=== PATIENT | female | born 1995 | race Caucasian/White ===

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

== ENCOUNTER → 2017-11-13 | Day surgery (SDC) | payer OTHER ==
--- NOTE | 2017-11-11 14:09 | MH ---
cc: Hugo Betancourt MD DATE OF ADMISSION: 11/13/2017 DATE OF : 1995 INDICATIONS: A 21-year-old female with chronic, recurrent tonsillitis. The patient has had multiple sore throats. He has been on antibiotic therapy and does not respond to medical therapy plans. The plan is for tonsillectomy. PAST MEDICAL HISTORY: ALLERGIES: NO KNOWN DRUG ALLERGIES. PHYSICAL EXAMINATION: GENERAL: Well-developed, well-nourished female, in no apparent distress. HEENT: Normocephalic and atraumatic. Extraocular motions intact. External ear canals clear. Lips, oral mucosa and oropharynx show no lesions. Tonsils 3+ with erythema. Nasal exam confirms no lesion. NECK: Shows no masses. CHEST: Clear to auscultation. HEART: Regular rate. ABDOMEN: Soft. EXTREMITIES: No lesions. NEUROLOGIC: Exam nonfocal. ASSESSMENT: A 21-year-old female with chronic, recurrent tonsillitis. PLAN: To undergo tonsillectomy. Risks and benefits were discussed with the patient and her mother. Risks include, but are not limited to those of anesthesia, bleeding, unfavorable scarring, velopharyngeal insufficiency, dehydration, depression, abscess, voice change, bleeding. The patient and mother state she understands and accepts the risks of the procedure. Hugo Betancourt MD JPM/SB , 01:49 PM , 02:08 PM
[~2017-11-13] VITALS: Ht 167.6 cm; Wt 118.9 kg
[~2017-11-13] MED LIST: ACETAMINOPHEN 1000 MG/100 ML 100 ML IV ONE; ACETAMINOPHEN 325MG/HYDROcodone 7.5MG/15ML UDC PO PRN; CHLORHEXIDINE GLUCONATE 2 % 1 PACK (2 CLOTHS) TOPICAL PRN; DEXAMETHASONE SOD PHOS 4 MG/ML VIAL IV ONE; DO NOT ADM ANY ANTICOAGULANT DRUGS PRN; GLYCOPYRROLATE 1 MG/5 ML SYRINGE IV PUSH ONE; LACTATED RINGER'S 1000 ML IV PRN; LIDOCAINE HCL 1% PF 5 ML SYRINGE OTHER ONE; METOPROLOL TARTRATE 25 MG TAB PO PRN; MONOTAB PO; MORPHINE SULFATE 4 MG/ML INJ IV PRN; NEOSTIGMINE 5 MG/5 ML SYRINGE IV PUSH ONE; ONDANSETRON HCL 4 MG/2 ML VIAL IV ONE; ONDANSETRON HCL 4 MG/2 ML VIAL IV PUSH PRN; POVIDONE IODINE 5% (ANTISEPSIS KIT) 4 APPLICATIONS EACH NARE PRN; PROPOFOL 200 MG/20 ML AMP IV ONE; ROCURONIUM INJ 50 MG/5 ML SYRINGE IV PUSH ONE; SODIUM CHLORID 0.9% 500 ML IV PRN; SUCCINYLCHOLINE CHLORIDE 100 MG/5 ML SYRINGE IV PUSH ONE; SUGAMMADEX SODIUM 200 MG/2 ML VIAL IV PUSH ONE; VALA500T PO; ceFAZolin 1,000 MG/NS 100 ML IV SCH; ceFAZolin INJ 1,000 MG VIAL IV ONE; fentaNYL CITRATE 250 MCG/5 ML AMP ONE
--- NOTE | 2017-11-13 08:30 | MP ---
cc: Hugo Betancourt MD DATE OF OPERATION: 11/13/2017 INDICATION FOR PROCEDURE: This is a 22-year-old female with chronic recurrent tonsillitis, tonsil hypertrophy, has not responded to medical therapy. Plan is for tonsillectomy. PREOPERATIVE DIAGNOSIS: Chronic recurrent tonsillitis. POSTOPERATIVE DIAGNOSIS: Chronic recurrent tonsillitis. PROCEDURE PERFORMED: Tonsillectomy. PROCEDURE SUMMARY: The patient was brought to the operating room and placed in supine position, successfully placed under general anesthesia, prepped and draped in the usual fashion for this procedure. Oral cavity exposed with a retractor. No submucous cleft. The right tonsil was removed with the Coblation technique from superior to inferior. Left tonsil removed in a similar fashion. Both tonsil beds inspected for hemostasis, obtained by suction cautery. The patient was suctioned, retractor was removed, was awakened and extubated and taken to the recovery in stable condition. Hugo Betancourt MD JPMickie/KD , 08:18 AM , 08:29 AM
[2017-11-13 09:20] LABS: BASOPHIL % 0.3 % (0.0-2.0); EOSINOPHIL # 0.1 TH/MM3 (0-0.4); EOSINOPHIL % 1.3 % (0.0-4.0); HEMATOCRIT 37.8 % (35.0-46.0); HEMOGLOBIN 13.2 GM/DL (11.6-15.3); LYMPH % 38.4 % (9.0-44.0); LYMPHOCYTE # 2.4 TH/MM3 (1.0-4.8); MEAN CELL VOLUME 81.2 FL (80.0-100.0); MEAN CORPUSCULAR HEMOGLOBIN 28.4 PG (27.0-34.0); MEAN CORPUSCULAR HGB CONC 34.9 % (32.0-36.0); MEAN PLATELET VOLUME 7.4 FL (7.0-11.0); MONO % 11.4 % (0.0-8.0); MONOCYTE # 0.7 TH/MM3 (0-0.9); NEUT % 48.6 % (16.0-70.0); PLATELET COUNT 240 TH/MM3 (150-450); RED BLOOD COUNT 4.66 MIL/MM3 (4.00-5.30); RED CELL DISTRIBUTION WIDTH 13.3 % (11.6-17.2); WHITE BLOOD COUNT 6.1 TH/MM3 (4.0-11.0)
[2017-11-13 11:23] VITALS: TEMP 97.9
[2017-11-13 11:50] VITALS: BP 118/72; PULSE 82; RESP 16; O2SAT 98
== END | disposition home or self-care (01) ==
LOC: HSDC 07:59
PROVIDERS: ATTEND Specialist
DX: J35.01 Chronic tonsillitis (principal); Z01.818 Encounter for other preprocedural examination
CPT/HCPCS: 00170; 42826; 84703; 85025; 88304; J0131; J0330; J0690; J1100; J2405; J2710; J3010

== ENCOUNTER 2017-11-28 06:20 | Observation (INO) ==
--- NOTE | 2017-11-28 07:32 | ED ---
HPI General Chief complaint: Respiratory Symptoms Stated complaint: Vomiting blood x 20 min Time Seen by Provider: 11/28/17 07:01 History of Present Illness HPI narrative: 22-year-old female here for evaluation of spitting up blood. Patient had tonsillectomy done approximately 2 weeks ago and since then did not have any problems but today she woke up noticing that there is blood in her saliva. She denies any trauma to her mouth and states that she has been eating soft diet mainly, she was recently having fever on and off for the last 3 days and had a chest x-ray done yesterday and was started on antibiotics. Patient did not check her temperature at this morning but when she came here in the ER she had a temperature of 103, she states she has mild cough but no sputum, no headache or other symptoms. Related Data Home Medications Medication Instructions Recorded Confirmed Control 11/27/17 azithromycin [Zithromax Z-Evens] 250 mg PO DAILY 11/27/17 11/27/17 Previous Rx's Medication Instructions Recorded benzonatate [Tessalon Perles] 100 mg PO TID PRN #7 cap 11/27/17 levofloxacin [Levaquin] 750 mg PO DAILY 7 Days #7 tab 11/27/17 ondansetron [Zofran ODT] 4 mg PO Q6H PRN #5 tab 11/27/17 Allergies Allergy/AdvReac Type Severity Reaction Status Date / Time No Known Allergies Allergy Unknown Uncoded 11/13/17 08:45 Review of Systems Except as stated in HPI: all other systems reviewed are negative [facility] Medical History Medical History Herpes (Acute) Surgical History Surgical History History of tonsillectomy (Acute) Social History Social History Substance History: No History of Abuse Second Hand Smoke Exposure: No Smoking Status: Never smoker How Often Do You Have a Drink Containing Alcohol: Monthly or less Recent Travel in [facility] within the Last 8 Weeks: No Recent Out of Country Travel within the Last 8 Weeks: No Immunization History Tetanus Immunization: Unsure Hx Influenza Vaccine This Season: No Exam Narrative Exam Narrative: GENERAL: Alert oriented x3 no acute distress SKIN: Focused skin assessment warm/dry. HEAD: Atraumatic. Normocephalic. EYES: Pupils equal and round. No scleral icterus. No injection or drainage. ENT: Trace bleeding from the tonsillar bed right more than left, spontaneous hemostasis, no signs of infection, no nasal bleeding or discharge. Mucous membranes pink and moist. NECK: Trachea midline. No JVD. CARDIOVASCULAR: Regular rate and rhythm. No murmur appreciated. RESPIRATORY: No accessory muscle use. Clear to auscultation. Breath sounds equal bilaterally. GASTROINTESTINAL: Abdomen soft, non-tender, nondistended. Hepatic and splenic margins not palpable. MUSCULOSKELETAL: No obvious deformities. No clubbing. No cyanosis. No edema. NEUROLOGICAL: Awake and alert. No obvious cranial nerve deficits. Motor grossly within normal limits. Normal speech. PSYCHIATRIC: Appropriate mood and affect; insight and judgment normal. Course Initial Documented Vital Signs Temperature 102.2 F H 11/28/17 06:27 Pulse Rate 128 H 11/28/17 06:27 Respiratory Rate 18 11/28/17 06:27 Blood Pressure 148/70 H 11/28/17 06:27 Pulse Oximetry 95 11/28/17 06:27 Last Documented Vital Signs Temperature 103.0 F H 11/28/17 08:15 Pulse Rate 128 H 11/28/17 06:27 Respiratory Rate 18 11/28/17 06:27 Blood Pressure 148/70 H 11/28/17 06:27 Pulse Oximetry 95 11/28/17 06:27 Medical Decision Making MDM Narrative Medical decision making narrative: 22-year-old female here for evaluation of spitting blood. Physical examination shows trace bleeding from the tonsillar bed the right more than left but no active bleeding and patient says that bleeding stopped and she does not notice any more blood from her sputum, patient was here yesterday and had blood work done an x-ray showed right lower lobe consolidation which could be pneumonia or atelectasis. Patient has tachycardia here in the ER and fever, she took 600 mg ibuprofen here in the ER, I ordered a CBC and lactic acid and urine analysis and and give her IV fluids 1 L and started her on Levaquin. I spoke with Dr. Betancourt who wanted to see the patient to evaluate the tonsillar bleeding and see if need to take her back to the OR. Discharge Plan Discharge Disposition Patient Disposition: 30 Still Patient Discharge Details Diagnosis: Haemorrhage, tonsil, postoperative Physicians Team ED Provider: Riki Cook Primary Care Provider: Thiago Lees Attending Provider: Tejal Carranza Interventions Interventions: Vital Signs Last Done: 11/28/17 08:15 Status ED Status: Admitted Observation Patient
[2017-11-28] MEDS ORDERED: Sod Chloride 0.9% Inj 1,000 ML IV.SIG ONE (08:03)
[2017-11-28] MEDS ORDERED: Levofloxacin 500 mg Premix Inj 500 MG/100 ML PIGGYBACK IV.SIG ONE (08:03)
[2017-11-28 09:06] LABS: Baso % (Auto) 0.5 % (0.0-2.0); Eos % (Auto) 0.5 % (0.0-4.0); Hematocrit 36.5 % (35.0-46.0); Hemoglobin 12.5 gm/dL (11.6-15.3); Lymph # (Auto) 0.7 th/mm3 (1.0-4.8); Lymph % (Auto) 10.4 % (9.0-44.0); Mean Corpuscular HGB Conc 34.2 % (32.0-36.0); Mean Corpuscular Hemoglobin 28.3 pg (27.0-34.0); Mean Corpuscular Volume 82.7 fL (80.0-100.0); Mean Platelet Volume 7.9 fL (7.0-11.0); Mono # (Auto) 0.4 th/mm3 (0.0-0.9); Mono % (Auto) 6.4 % (0.0-8.0); Neut # (Auto) 5.2 th/mm3 (1.8-7.7); Neut % (Auto) 82.2 % (16.0-70.0); Platelet Count 258 th/mm3 (150-450); Red Blood Count 4.42 mil/mm3 (4.00-5.30); Red Cell Distribution Width 11.8 % (11.6-17.2); White Blood Count 6.3 th/mm3 (4.0-11.0)
[2017-11-28] MEDS ORDERED: Prochlorperazine 25 MG Supp RECTAL PRN (09:21)
[2017-11-28] MEDS ORDERED: Temazepam 15 MG Capsule PO PRN (09:21)
[2017-11-28] MEDS ORDERED: Acetaminophen 325 MG Tablet PO PRN (09:21)
--- NOTE | 2017-11-28 09:33 | P.HPIM ---
History of Present Illness Primary Care Physician: Thiago Lees DO Chief Complaint: Cough and chills History of Present Illness: This patient is a 22-year-old female with minimal past history comes in complaining of 2 days of chills, diaphoresis fever at home with associated hemoptysis. Patient's temperature was as high as 103 and has been 102 here. She is tachycardic at 128. She came to the emergency room yesterday with similar complaints and was given antibiotics and discharged home because she felt much better. Overnight her symptoms return. X-ray done in the emergency room yesterday does show my review lower lobe infiltrate. Patient appears to have pneumonia. Recently she did have her tonsils out 2 weeks ago due to large size with increasing difficulty breathing and recurrent infections. Since that time she is recovering well until this episode of what sounds like hemoptysis. Patient is febrile, tachycardic and appears to be septic acute pneumonia and will need to stay in the hospital for further evaluation and treatment - Diagnosis (1) Community acquired pneumonia (2) Haemorrhage, tonsil, postoperative Plans for Post Hospital Care: Home Review of Systems All other systems reviewed negative except as stated in HPI Constitutional: Reports body ache(s), Reports chills, Reports fatigue, Reports fever(s) Ears, Nose, Mouth, and Throat: Reports difficulty swallowing Cardiovascular: Reports fast heart rate Respiratory: Reports cough, Reports coughing up blood, Reports shortness of breath PMFSH - History History Provided By: Patient - Medical History Medical History: Medical History (Last Reviewed 11/28/17 @ 09:28 by Tejal Carranza MD) Herpes - Surgical History Surgical History: Surgical History (Last Reviewed 11/28/17 @ 09:28 by Tejal Carranza MD) History of tonsillectomy - Tobacco History Second Hand Smoke Exposure: No Smoking Status: Never smoker - Alcohol History How Often Do You Have a Drink Containing Alcohol: Monthly or less - Substance Use History Substance History: No History of Abuse - Travel History Recent Travel in the [place] Within the Last 8 Weeks: No Recent Travel Out of the Country Within the Last 8 Weeks: No - Immunization History Tetanus Immunization: Unsure Hx Influenza Vaccine This Season: No Medications and Allergies Allergies Allergy/AdvReac Type Severity Reaction Status Date / Time No Known Allergies Allergy Unknown Uncoded 11/13/17 08:45 Home Medications Medication Instructions Recorded Confirmed Type Control 11/27/17 History azithromycin [Zithromax Z-Evens] 250 mg PO DAILY 11/27/17 11/27/17 History Exam Vital signs: Vital Signs 11/28/17 06:27 11/28/17 08:15 11/28/17 09:23 Temperature 102.2 F H 103.0 F H 100.6 F H Pulse Rate 128 H 104 H Respiratory Rate 18 18 Blood Pressure 148/70 H 112/65 Pulse Oximetry 95 97 Intake & Output 11/27/17 11/28/17 11/28/17 18:59 06:59 18:59 Weight 114 kg Results - Labs CBC & Chem 7: 11/28/17 08:50 Caprini VTE Risk Assessment Caprini VTE Risk Assessment: No/Low Risk (score <= 1) Caprini Risk Assessment Model: Point Value = 1 Point Value = 2 Point Value = 3 Point Value = 5 Age 41-60 Minor surgery BMI > 25 kg/m2 Swollen legs Varicose veins or History of unexplained or recurrent spontaneous Oral contraceptives or hormone replacement Sepsis (< 1 month) Serious lung disease, including pneumonia (< 1 month) Abnormal pulmonary function Acute myocardial infarction Congestive heart failure (< 1 month) History of inflammatory bowel disease Medical patient at bed rest Age 61-74 Arthroscopic surgery Major open surgery (> 45 min) Laparoscopic surgery (> 45 min) Malignancy Confined to bed (> 72 hours) Immobilizing plaster cast Central venous access Age >= 75 History of VTE Family history of VTE Factor V Leiden Prothrombin [id number] Lupus anticoagulant Anticardiolipin antibodies Elevated serum homocysteine Heparin-induced thrombocytopenia Other congenital or acquired thrombophilia Stroke (< 1 month) Elective arthroplasty Hip, pelvis, or leg fracture Acute spinal cord injury (< 1 month) Prophylaxis Regimen: Total Risk Factor Score Risk Level Prophylaxis Regimen 0-1 Low Early ambulation 2 Moderate Order ONE of the following: *Sequential Compression Device (SCD) *Heparin 5000 units SQ BID 3-4 Higher Order ONE of the following medications: *Heparin 5000 units SQ TID *Enoxaparin/Lovenox 40 mg SQ daily (WT < 150 kg, CrCl > 30 mL/min) *Enoxaparin/Lovenox 30 mg SQ daily (WT < 150 kg, CrCl > 10-29 mL/min) *Enoxaparin/Lovenox 30 mg SQ BID (WT < 150 kg, CrCl > 30 mL/min) AND/OR *Sequential Compression Device (SCD) 5 or more Highest Order ONE of the following medications: *Heparin 5000 units SQ TID (Preferred with Epidurals) *Enoxaparin/Lovenox 40 mg SQ daily (WT < 150 kg, CrCl > 30 mL/min) *Enoxaparin/Lovenox 30 mg SQ daily (WT < 150 kg, CrCl > 10-29 mL/min) *Enoxaparin/Lovenox 30 mg SQ BID (WT < 150 kg, CrCl > 30 mL/min) AND *Sequential Compression Device (SCD) Assessment and Plan - Assessment (1) Community acquired pneumonia Code(s): J18.9 - Pneumonia, unspecified organism Status: Acute Plan: Continue with Levaquin and doxycycline for coverage for possible associated versus community acquired pneumonia given patient's recent hospitalization. Incentive spirometry Patient with signs of sepsis with fever and tachycardia Continue fluids (2) Haemorrhage, tonsil, postoperative Status: Acute Plan: Appears to have resolved, follow hemoglobin Patient follows up with Dr. Betancourt
[2017-11-28 10:15] LABS: Lymphocytes 13 % (9-44); Metamyelocytes 1 % (0-1); Monocytes 7 % (0-8)
[2017-11-28 10:16] LABS: Platelet Estimate Normal (Normal); Platelet Morphology Normal (Normal); RBC Morphology Normal (Normal)
[2017-11-28 10:49] LABS: Bilirubin,Urine Negative (Negative); Clarity,Urine Clear (Clear); Color,Urine Yellow (Yellw/Straw); Glucose,Urine (UA) Negative (Negative); Leukocyte Esterase,Urine Moderate (Negative); Nitrite,Urine Negative (Negative); PH,Urine 6.5 (5.0-8.5); Urobilinogen,Urine 0.2 mg/dL (Less than 2)
[2017-11-28 10:56] LABS: Bacteria,Urine Few /hpf; RBC,Urine 0-3 /hpf (0-3)
[2017-11-28 10:57] LABS: Mucus,Urine Moderate /lpf (Occasional)
[2017-11-28] MEDS ORDERED: Lidocaine PF 1% Inj 5 ML Syringe INFILTRATN ONE (12:00)
[2017-11-28] MEDS ORDERED: Succinylcholine Inj 100 MG/5 ML Syringe IV.PUSH ONE (12:00)
[2017-11-28] MEDS: Benzonatate 100 MG Capsule PO PRN (12:59)
[2017-11-28] MEDS ORDERED: Famotidine PF Inj 20 MG/2 ML Vial ONE (17:58)
[2017-11-28] MEDS ORDERED: Dexmedetomidine Inj 200 MCG/2 ML Vial ONE (17:58)
--- NOTE | 2017-11-28 18:20 | MB ---
cc: Hugo Betancourt MD DATE: 11/28/2017 INDICATIONS: This patient presents with history of tonsillectomy. She was operated on 2 weeks ago and originally had done well. Mariana had some issues with pain, but these were controlled. She did not seem dehydrated. Earlier this week, approximately 1-1/2 weeks from surgery, she did present to the office and was beginning to have fevers up to 101. She was examined and appeared to be healing well. She was breathing well and she was started on antibiotic therapy with a Z-Evens at that time. Overnight from Saturday to Saturday, she became more febrile and went as high as 103, and it was advised that she go to the emergency room to be evaluated for possible pneumonia. She was seen at the [facility] ED, was hydrated there and seen, was given antibiotic therapy and felt to possibly have early pneumonia, but still was deemed a candidate for outpatient treatment and was discharged home. She had left late Saturday into morning. Later morning, she developed sudden onset bleeding and returned to the [place] facility where she was admitted and observed. The bleeding had stopped initially and it was decided to watch her overnight on 23-hour observation, continuing her IV antibiotic therapy and hydration, and she was actually doing quite well, but she has developed 2 more episodes of bleeding during the day. Although these have currently stopped, plan is to take her to the operating room and examine her under anesthesia with plans of control of post-tonsillectomy hemorrhage. This was reviewed with the patient and her mother. PAST MEDICAL HISTORY: Significant for tonsillectomy 2 weeks ago. No history of bleeding disorder. PHYSICAL EXAMINATION: GENERAL: Well-developed female in no distress. HEENT: Normocephalic, atraumatic. The extraocular motions intact. The external ears are clear. Lips, oral mucosa and oropharynx show no lesion. She is healing from tonsillectomy. There is a small amount of clot at the right tonsil at the base, but no active bleeding at this point. Nasal exam shows no bleeding. NECK: Shows no masses. CHEST: Clear to auscultation. HEART: Regular rate. ABDOMEN: Soft. EXTREMITIES: No lesions. NEUROLOGIC: Nonfocal. ASSESSMENT: Post-tonsillectomy hemorrhage. The patient appears to be settling down, but she has had several episodes and we will take her to the operating room for evaluation under anesthesia for control of postoperative tonsillectomy hemorrhage. We will have her stay at the hospital overnight, continue observation, make sure her pulmonary status is improved. She is admitted under the medical team with ENT consultation. MD ARUN Prasad/SUNSHINE , 06:04 PM , 06:19 PM
[2017-11-28] MEDS ORDERED: Sugammadex Inj 200 MG/2 ML Vial IV.PUSH ONE (18:29)
[2017-11-28] MEDS ORDERED: Morphine Inj 4 MG/ML Vial ONE (18:51)
[2017-11-28] MEDS ORDERED: fentaNYL Citrate Inj 100 MCG/2 ML Ampul ONE (18:54)
[2017-11-28] MEDS ORDERED: *morphine SULFATE 4 MG/ML PERIprocedure ONLY ONE (19:04)
--- NOTE | 2017-11-28 19:05 | MP ---
cc: Hugo Betancourt MD DATE OF OPERATION: 11/28/2017 INDICATION FOR PROCEDURE: This 22-year-old female had a post-tonsillectomy bleed 2 weeks after her procedure. She is to undergo control of post-tonsillectomy hemorrhage. PREOPERATIVE DIAGNOSIS: Post-tonsillectomy hemorrhage. POSTOPERATIVE DIAGNOSIS: Post-tonsillectomy hemorrhage. PROCEDURE PERFORMED: Control of post-tonsillectomy hemorrhage. SUMMARY OF PROCEDURE: The patient was brought to the operating room, placed in supine position, successfully placed under general anesthesia, rapid sequence induction. There was no evidence of vomiting and no evidence of aspiration. She tolerated this well. The oral cavity was exposed with a retractor. She was examined and gently palpated with the suction cautery. There was no bleeding points, no issues on the left side. She did not do any heavy bleeding. She showed no heavy clot. There were some areas of granulation tissue at the superior lateral portion of the bed and this area was cauterized and there was a small area of oozing, very little bleeding at the mid to upper part of the tonsil bed and this was also cauterized. I then palpated the areas more briskly and saw no bleeding. I took a Yankauer suction, suctioned more inferiorly. There was no bleeding and no old blood. An orogastric tube was placed and there were some yellow contents, which were very mild. No food stuff and she was cleared. We then extubated and the patient had a good cough reflex. There was no evidence of vomiting. She tolerated this well. She was awakened and taken to recovery in stable condition. Hugo Betancourt MD JPM/KD , 06:51 PM , 07:04 PM
[2017-11-28] MEDS ORDERED: Famotidine PF Inj 20 MG/2 ML Vial IV.PUSH ONE (19:45)
[2017-11-28] MEDS: Dextrose 5%/Lactated Ringer's 1,000 ML IV.SIG SCH (20:00)
[2017-11-28] MEDS: DOXYCYCLINE 25 MG/5 ML PO SCH (23:53)
--- NOTE | 2017-11-29 06:42 | P.PN ---
Subjective Interval history: No bleed over night. Feels better. Physical Exam Vital signs: Vital Signs 11/28/17 08:15 11/28/17 09:23 11/28/17 11:56 Temperature 103.0 F H 100.6 F H 99.5 F Pulse Rate 104 H 105 H Respiratory Rate 18 20 Blood Pressure 112/65 122/63 Pulse Oximetry 97 93 L 11/28/17 15:12 11/28/17 17:40 11/28/17 18:00 Temperature 99.5 F 101 F H 102 F H Pulse Rate 94 H 110 H 115 H Respiratory Rate 20 16 17 Blood Pressure 107/55 L 136/63 128/65 Pulse Oximetry 98 100 100 11/28/17 18:45 11/28/17 19:00 11/28/17 19:15 Temperature 99.8 F H Pulse Rate 104 H 97 H 96 H Respiratory Rate 18 16 16 Blood Pressure 134/78 137/73 127/70 Pulse Oximetry 100 95 93 L 11/28/17 19:30 11/28/17 19:45 11/28/17 19:59 Temperature 97.6 F Pulse Rate 98 H 96 H 91 H Respiratory Rate 16 16 16 Blood Pressure 128/67 129/66 123/75 Pulse Oximetry 94 L 94 L 11/28/17 20:10 11/28/17 23:45 11/29/17 04:18 Temperature 99.6 F 98.7 F 98.4 F Pulse Rate 95 H 80 74 Respiratory Rate 16 16 16 Blood Pressure 98/54 L 113/68 131/78 Pulse Oximetry 95 97 96 Intake & Output 11/28/17 11/28/17 11/29/17 06:59 18:59 06:59 Intake Total 1850 / 1850 Output Total 5 / 5 Balance 1845 / 1845 Weight 114 kg 113.1 kg Intake: IV 1100 / 1100 Levaquin 500 mg Premix Inj 500 100 / 100 mg In 100 ml @ 100 mls/hr IV. SIG ONCE ONE Rx#:[id number] NS Inj 1,000 ML @ Wide Open IV. 1000 / 1000 SIG BOLUS ONE Rx#:[id number] Anesthesia Amount 750 / 750 Output: Estimated Blood Loss 5 / 5 Other: Weight On Admission 113.1 kg - Constitutional no acute distress - Routine HEENT Exam Head: Present: normocephalic, atraumatic Eye: Present: EOMI ENT: Present: mucous membranes moist, oropharynx clear Results - Labs CBC & Chem 7: 11/28/17 08:50 Laboratory Results - last 24 hr 11/28/17 11/28/17 11/28/17 08:50 08:50 10:40 CBC w Diff Slide review pending WBC 6.3 RBC 4.42 Hgb 12.5 Hct 36.5 MCV 82.7 MCH 28.3 MCHC 34.2 RDW 11.8 Plt Count 258 MPV 7.9 Neut % (Auto) 82.2 H Lymph % (Auto) 10.4 [place] % (Auto) 6.4 Eos % (Auto) 0.5 Baso % (Auto) 0.5 Neut # (Auto) 5.2 Lymph # (Auto) 0.7 L [place] # (Auto) 0.4 Eos # (Auto) 0.0 Baso # (Auto) 0.0 WBC Differential Manual diff final Seg Neuts % (Manual) 60 Band Neuts % (Manual) 19 H Lymphocytes % (Manual) 13 Monocytes % (Manual) 7 Metamyelocytes % (Man) 1 Abs Neuts (Manual) 5.0 Differential Comment . Platelet Estimate Normal Platelet Morphology Normal RBC Morphology Normal Lactic Acid 0.8 Urine Color Yellow Urine Clarity Clear Urine pH 6.5 Ur Specific Eva 1.020 Urine Protein Negative Urine Glucose (UA) Negative Urine Ketones Negative Urine Occult Blood Large H Urine Nitrate Negative Urine Bilirubin Negative Urine Urobilinogen 0.2 Ur Leukocyte Esterase Moderate H Urine RBC 0-3 Urine WBC 9-20 H Ur Squamous Epith Cells 6-10 H Urine Bacteria Few H Urine Mucus Moderate H Micro UA Comment Culture indicated Urine Culture Comments Culture indicated Assessment and Plan - Plan No further bleeding. Has Levaquin script ant home and a follow up with Dr Betancourt on Saturday. Discharge home.
[2017-11-29] MEDS ORDERED: Azithromycin 250 MG Tablet PO SCH (09:00)
[2017-11-29] MEDS ORDERED: levoFLOXacin 750 MG Tablet PO SCH (09:00)
[2017-11-29] MEDS ORDERED: diphenhydrAMINE HCl 12.5 MG/5 ML Elixir UDC PO PRN (10:58)
[2017-11-29] MEDS: DOXYCYCLINE 25 MG/5 ML PO SCH ×2 (11:18→21:19)
[2017-11-29] MEDS: Dextrose 5%/Lactated Ringer's 1,000 ML IV.SIG SCH ×4 (11:26→15:33)
--- NOTE | 2017-11-29 13:58 | XR ---
EXAM DATE: 11/29/2017 1:34 PM EDT AGE/SEX: 22 years / Female INDICATIONS: Cough and shortness of breath. CLINICAL DATA: This is the patient's subsequent encounter. Patient reports that signs and symptoms h ave been present for 1 day and indicates a pain score of Nonresponsive. MEDICAL/SURGICAL HISTORY: None. None. COMPARISON: [facility] [place], CHEST 1V SINGLE AP, 11/27/2017. . FINDINGS: Minimal parenchymal changes right middle lobe. Left lung clear. The heart and pulmonary vascularity are normal. The portion of the bony skeleton visualized is unrema rkable. CONCLUSION: Minimal parenchymal changes right middle lobe consistent with an inflammatory process Electronically signed by: Dann Santos MD 11/29/2017 1:56 PM EDT
[2017-11-29] MEDS: levoFLOXacin Liq 25 MG/ML 100 ML Bottle PO SCH (15:02)
[2017-11-29 16:17] LABS: Baso % (Auto) 0.2 % (0.0-2.0); Eos % (Auto) 0.3 % (0.0-4.0); Hematocrit 35.5 % (35.0-46.0); Lymph # (Auto) 2.6 th/mm3 (1.0-4.8); Lymph % (Auto) 37.2 % (9.0-44.0); Mean Corpuscular HGB Conc 33.9 % (32.0-36.0); Mean Corpuscular Hemoglobin 27.6 pg (27.0-34.0); Mean Corpuscular Volume 81.5 fL (80.0-100.0); Mono # (Auto) 0.8 th/mm3 (0.0-0.9); Mono % (Auto) 11.4 % (0.0-8.0); Neut # (Auto) 3.5 th/mm3 (1.8-7.7); Neut % (Auto) 50.9 % (16.0-70.0); Platelet Count 311 th/mm3 (150-450); Red Blood Count 4.36 mil/mm3 (4.00-5.30); Red Cell Distribution Width 12.6 % (11.6-17.2); White Blood Count 6.9 th/mm3 (4.0-11.0)
[2017-11-29 16:37] LABS: Anion Gap 11 meq/L (5-15); Blood Urea Nitrogen 4 mg/dL (7-18); Calcium 8.9 mg/dL (8.5-10.1); Carbon Dioxide 23.7 meq/L (21.0-32.0); Chloride 110 meq/L (98-107); Glomerular Filtration Rate Greater Than 89 mL/min (>89); Glucose,Random 89 mg/dL (74-106); Potassium 3.3 meq/L (3.5-5.1); Sodium 145 meq/L (136-145)
[2017-11-29] MEDS ORDERED: Dextrose 5%/Lactated Ringer's 1,000 ML IV.SIG SCH (18:00)
[2017-11-29] MEDS ORDERED: Dextrose 5%/Lactated Ringer's 1,000 ML IV.CONT SCH (18:15)
[2017-11-29] MEDS: Benzonatate 100 MG Capsule PO PRN (18:43)
--- NOTE | 2017-11-29 19:06 | P.CONFP ---
History of Present Illness Service: family nedicine Consult date: 11/29/17 Primary Care Provider: Thiago Lees DO Family Provider: Thiago Lees DO Chief Complaint: Cough and chills History of Present Illness: pt had tonsillectomy about 2 weeks ago developed a cough and chills and presented to ED she was admitted with pneumoniae Review of Systems Constitutional: Reports chills, Reports weakness Ears, Nose, Mouth, and Throat: Reports pain with swallowing, Reports sore throat PMFSH - History History Provided By: Patient, Family Member - Medical History Medical History: Medical History (Last Reviewed 11/28/17 @ 20:19 by Mary Jo Joyce RN) Herpes - Surgical History Surgical History: Surgical History (Last Reviewed 11/28/17 @ 20:19 by Mary Jo Joyce RN) History of tonsillectomy - Tobacco History Second Hand Smoke Exposure: No Smoking Status: Never smoker - Alcohol History How Often Do You Have a Drink Containing Alcohol: Never - Substance Use History Substance History: No History of Abuse - Travel History Recent Travel in the [place] Within the Last 8 Weeks: No Recent Travel Out of the Country Within the Last 8 Weeks: No - Immunization History Tetanus Immunization: Unsure Hx Influenza Vaccine This Season: No Medications and Allergies Active Medications: Active Medications Acetaminophen (Tylenol) 650 mg PO Q4H PRN PRN Reason: Temp > 100.4 Acetaminophen (Tylenol Liq) 650 mg PO Q4H PRN PRN Reason: fever > 10/pain Last Admin: 11/29/17 15:01 Dose: 650 mg Benzonatate (Tessalon Perles) 100 mg PO TID PRN PRN Reason: cough Last Admin: 11/29/17 18:43 Dose: 100 mg Diphenhydramine HCl (Benadryl Liq) 25 mg PO HS PRN PRN Reason: SLEEP Doxycycline Monohydrate (Vibramycin Liq) 100 mg PO Q12HR ALDO Last Admin: 11/29/17 11:18 Dose: 100 mg Dextrose/Lactated Ringer's (D5w/Lr Inj) 1,000 mls @ 80 mls/hr IV.CONT .[id number] ALDO Lactulose (Lactulose Liq) 30 ml PO DAILY PRN PRN Reason: SEVERE CONSITIPATION Levofloxacin (Levaquin) 750 mg PO DAILY ALDO Last Admin: 11/29/17 15:02 Dose: 750 mg Miscellaneous Information ([facility] [place] [facility] [place] 1 each OTHER UNSCH PRN PRN Reason: SEE LABEL COMMENTS Stop: 11/29/17 19:49 Ondansetron HCl (Zofran Odt) 4 mg PO Q6H PRN PRN Reason: nausea and vomiting Prochlorperazine (Compazine Supp) 25 mg RECTAL Q12HR PRN PRN Reason: NAUSEA OR VOMITING Allergies Allergy/AdvReac Type Severity Reaction Status Date / Time No Known Allergies Allergy Unknown Uncoded 11/13/17 08:45 Home Medications Medication Instructions Recorded Confirmed Type Control 11/27/17 History azithromycin [Zithromax Z-Evens] 250 mg PO DAILY 11/27/17 11/27/17 History Exam Vital signs: Vital Signs 11/28/17 19:15 11/28/17 19:30 11/28/17 19:45 Temperature Pulse Rate 96 H 98 H 96 H Respiratory Rate 16 16 16 Blood Pressure 127/70 128/67 129/66 Pulse Oximetry 93 L 94 L 94 L 11/28/17 19:59 11/28/17 20:10 11/28/17 23:45 Temperature 97.6 F 99.6 F 98.7 F Pulse Rate 91 H 95 H 80 Respiratory Rate 16 16 16 Blood Pressure 123/75 98/54 L 113/68 Pulse Oximetry 95 97 11/29/17 04:18 11/29/17 08:00 11/29/17 12:00 Temperature 98.4 F 99 F 98.3 F Pulse Rate 74 91 H 88 Respiratory Rate 16 14 16 Blood Pressure 131/78 129/81 128/68 Pulse Oximetry 96 95 98 11/29/17 16:00 Temperature 98.6 F Pulse Rate 82 Respiratory Rate 16 Blood Pressure 117/61 Pulse Oximetry 97 Intake & Output 11/29/17 11/29/17 11/30/17 06:59 18:59 06:59 Intake Total 2560 / 2560 Balance 2560 / 2560 Intake: IV 1000 / 1000 D5W/LR Inj 1,000 ML @ 80 mls/hr 1000 / 1000 IV.SIG .[id number] ALDO Rx#: [id number] Oral 1560 / 1560 Other: # Voids 1 # Bowel Movements 1 - Constitutional mild distress - Routine HEENT Exam Head: Present: normocephalic, atraumatic Eye: Present: EOMI, PERRL ENT: Present: mucous membranes moist Comments: recent tonsillectomy present - Routine Respiratory Exam Present: decreased breath sounds Results - Labs Result diagrams: 11/29/17 15:02 11/29/17 15:02 Abnormal lab results 11/29/17 11/29/17 Range/Units 15:02 15:02 [place] % (Auto) 11.4 H (0.0-8.0) % Potassium 3.3 L (3.5-5.1) meq/L Chloride 110 H (98-107) meq/L BUN 4 L (7-18) mg/dL Short CBC 11/29/17 Range/Units 15:02 WBC 6.9 (4.0-11.0) th/mm3 Hgb 12.0 (11.6-15.3) gm/dL Hct 35.5 (35.0-46.0) % Plt Count 311 (150-450) th/mm3 BMP 11/29/17 15:02 Sodium 145 Potassium 3.3 L Chloride 110 H Carbon Dioxide 23.7 BUN 4 L Creatinine 0.65 Calcium 8.9 - Imaging Impressions Chest X-Ray 11/29/17 00:00 CONCLUSION: Minimal parenchymal changes right middle lobe consistent with an inflammatory process Assessment and Plan - Assessment (1) Lung infiltrate Code(s): R91.8 - Other nonspecific abnormal finding of lung field Status: Acute Plan: meds changed to po will ck lab in am - Assessment and Plan meds changed to liquid will ck lab am
[2017-11-29 21:28] LABS: Baso % (Auto) 0.4 % (0.0-2.0); Eos % (Auto) 0.5 % (0.0-4.0); Hematocrit 31.1 % (35.0-46.0); Hemoglobin 11.1 gm/dL (11.6-15.3); Lymph # (Auto) 3.1 th/mm3 (1.0-4.8); Mean Corpuscular HGB Conc 35.8 % (32.0-36.0); Mean Corpuscular Hemoglobin 28.6 pg (27.0-34.0); Mean Corpuscular Volume 79.9 fL (80.0-100.0); Mean Platelet Volume 7.9 fL (7.0-11.0); Mono # (Auto) 0.7 th/mm3 (0.0-0.9); Mono % (Auto) 11.3 % (0.0-8.0); Neut # (Auto) 2.2 th/mm3 (1.8-7.7); Neut % (Auto) 36.8 % (16.0-70.0); Platelet Count 267 th/mm3 (150-450); Red Blood Count 3.89 mil/mm3 (4.00-5.30); Red Cell Distribution Width 12.7 % (11.6-17.2)
[2017-11-29 21:53] LABS: Anion Gap 13 meq/L (5-15); Blood Urea Nitrogen 5 mg/dL (7-18); Calcium 8.9 mg/dL (8.5-10.1); Carbon Dioxide 21.4 meq/L (21.0-32.0); Chloride 110 meq/L (98-107); Glomerular Filtration Rate Greater Than 89 mL/min (>89); Glucose,Random 305 mg/dL (74-106); Potassium 3.5 meq/L (3.5-5.1); Sodium 144 meq/L (136-145)
[2017-11-30] MEDS: Benzonatate 100 MG Capsule PO PRN ×2 (02:11→09:25)
[2017-11-30] MEDS: levoFLOXacin Liq 25 MG/ML 100 ML Bottle PO SCH (09:25)
[2017-11-30] MEDS: Dextrose 5%/Lactated Ringer's 1,000 ML IV.SIG SCH (09:43)
[2017-11-30] MEDS: DOXYCYCLINE 25 MG/5 ML PO SCH (10:28)
--- NOTE | 2017-11-30 12:15 | P.DS ---
Date of admission: 11/28/17 08:36 Primary care physician: Thiago Lees DO Anticipated date of discharge: 11/30/17 Brief History from admission: This patient is a 22-year-old female with minimal past history comes in complaining of 2 days of chills, diaphoresis fever at home with associated hemoptysis. Patient's temperature was as high as 103 and has been 102 here. She is tachycardic at 128. She came to the emergency room yesterday with similar complaints and was given antibiotics and discharged home because she felt much better. Overnight her symptoms return. X-ray done in the emergency room yesterday does show my review lower lobe infiltrate. Patient appears to have pneumonia. Recently she did have her tonsils out 2 weeks ago due to large size with increasing difficulty breathing and recurrent infections. Since that time she is recovering well until this episode of what sounds like hemoptysis. Patient is febrile, tachycardic and appears to be septic acute pneumonia and will need to stay in the hospital for further evaluation and treatment DS: Diagnosis - Discharge Diagnosis (1) Lung infiltrate Status: Acute DS: Summary Hospital Course: pt had cough and malaise upon admission was treated with levoquin and doxycycline and improved will dc home on same abx fu cxr 1 week fu apt with GRW next week - Time Spent with Patient Total time spent providing and/or coordinating discharge services: Greater than 30 minutes - Quality: AMI Clinical Trial Participant: No - Quality: Stroke Last date observed well: 11/30/17 Last time observed well: 12:13 - Quality: VTE Is this test being ordered to rule out VTE?: No Deep Vein Thrombosis/Pulmonary Embolism Present on Admission: No Exam Vital signs: Vital Signs 11/29/17 16:00 11/29/17 20:15 11/30/17 00:35 Temperature 98.6 F 98.4 F 97.9 F Pulse Rate 82 87 76 Respiratory Rate 16 18 18 Blood Pressure 117/61 120/66 133/63 Pulse Oximetry 97 98 99 11/30/17 05:30 11/30/17 06:07 11/30/17 09:10 Temperature 98.7 F Pulse Rate 64 66 Respiratory Rate 16 16 18 Blood Pressure 115/60 Pulse Oximetry 98 97 Intake & Output 11/29/17 11/30/17 11/30/17 18:59 06:59 18:59 Intake Total 2560 / 2560 2080 / 2080 Balance 2560 / 2560 2079 Intake: IV 1000 / 1000 1000 / 1000 D5W/LR Inj 1,000 ML @ 80 mls/hr 1000 / 1000 IV.SIG .[id number] ALDO Rx#: [id number] Oral 1560 / 1560 1080 / 1080 Other: # Voids 1 3 # Bowel Movements 1 - Constitutional no acute distress - Routine HEENT Exam Head: Present: normocephalic, atraumatic Eye: Present: EOMI, PERRL Comments: pharynx red post recent tonsillectomy - Routine Respiratory Exam Present: decreased breath sounds Comments: few rhonchi - Routine Cardiovascular Exam Present: RRR - Routine Abdominal Exam Present: soft, normoactive bowel sounds Results Procedures completed during hospitalization: previous tonsillectomy Labs on day of discharge: Labs from last 24 hours 11/29/17 11/29/17 11/29/17 21:00 21:00 15:02 WBC 6.0 RBC 3.89 L Hgb 11.1 L Hct 31.1 L MCV 79.9 L MCH 28.6 MCHC 35.8 RDW 12.7 Plt Count 267 MPV 7.9 Neut % (Auto) 36.8 Lymph % (Auto) 51.0 H [place] % (Auto) 11.3 H Eos % (Auto) 0.5 Baso % (Auto) 0.4 Neut # (Auto) 2.2 Lymph # (Auto) 3.1 [place] # (Auto) 0.7 Eos # (Auto) 0.0 Baso # (Auto) 0.0 WBC Differential . Differential Comment Auto diff final Sodium 144 145 Potassium 3.5 3.3 L Chloride 110 H 110 H Carbon Dioxide 21.4 23.7 Anion Gap 13 11 BUN 5 L 4 L Creatinine 0.76 0.65 Estimated GFR Greater than 89 Greater than 89 Random Glucose 305 H D 89 Calcium 8.9 8.9 11/29/17 15:02 WBC 6.9 RBC 4.36 Hgb 12.0 Hct 35.5 MCV 81.5 MCH 27.6 MCHC 33.9 RDW 12.6 Plt Count 311 MPV 8.0 Neut % (Auto) 50.9 Lymph % (Auto) 37.2 [place] % (Auto) 11.4 H Eos % (Auto) 0.3 Baso % (Auto) 0.2 Neut # (Auto) 3.5 Lymph # (Auto) 2.6 [place] # (Auto) 0.8 Eos # (Auto) 0.0 Baso # (Auto) 0.0 WBC Differential . Differential Comment Auto diff final Sodium Potassium Chloride Carbon Dioxide Anion Gap BUN Creatinine Estimated GFR Random Glucose Calcium Preliminary micro results at discharge 11/28/17 11:00 Aerobic Blood Culture - Preliminary Blood - Peripheral No growth in 2 days Anaerobic Blood Culture - Preliminary No growth in 2 days 11/28/17 10:45 Aerobic Blood Culture - Preliminary Blood - Peripheral No growth in 2 days Anaerobic Blood Culture - Preliminary No growth in 2 days - Impressions ITS Impressions Chest X-Ray 11/29/17 00:00 CONCLUSION: Minimal parenchymal changes right middle lobe consistent with an inflammatory process - Additional Comments will fu next week nebulizers added diet progressed to tolerance will fu cxr in 1 week Discharge Plan - Discharge Disposition Patient Disposition: 01 Discharge Home - Discharge Condition Condition: Good - Discharge Order Discharge Orders: Discharge Order (Routine); Ordered 11/29/17 Ordered By: Hugo Betancourt - Discharge Details Anticipated Discharge Date: 11/30/17 Discharge Comment: doing well - Physicians Team Primary Care Provider: Thiago Lees Attending Provider: Thiago Lees Other Providers: Hugo Betancourt MD
== END 2017-11-30 13:21 | disposition home or self-care (01) ==
LOC: PHEDA 06:20 → H6YA 06:20 → PHED 06:20 → PH3 10:20 → HPAC 17:51 → H6YA 20:02
PROVIDERS: ADMIT Family Medicine; ATTEND Family Medicine
DX: Y83.6 Removal of other organ (partial) (total) as the cause of abnormal reaction of the patient, or of later complication, without mention of misadventure at the time of the procedure; J95.830 Postprocedural hemorrhage of a respiratory system organ or structure following a respiratory system procedure; J18.9 Pneumonia, unspecified organism